=== PATIENT | female | born 1985 | race African-American/Black ===

== ENCOUNTER 2016-10-20 06:03 | Emergency (ER) | payer OTHER ==
[2016-10-20] MEDS ORDERED: MECLIZINE HCL 25 MG TABLET (FP) PO STA (06:22)
[2016-10-20 06:23] VITALS: TEMP 97.9; BMI 23.0
[2016-10-20] MEDS ORDERED: MECLIZINE HCL 25 MG TABLET (FP) ONE (06:26)
--- NOTE | 2016-10-20 06:39 | PDOC ---
History of Present Illness - General History Source: Patient Exam Limitations: No Limitations - History of Present Illness Initial Comments: 10/20/16 06:41 The patient is a 31 year old female with significant past medical history of hypertension, vertigo, anxiety who presents to the ED for dizziness prior to arrival. Patient reports waking up this morning and as she was reaching for her phone she suddenly felt the room spinning. States due to her anxiety, the dizziness became worse. Patient reports taking atenolol 25 mg for her blood pressure and when she takes it, the atenolol will usually slow her heart rate thus improving her anxiety and vertigo. However, after taking it today, it did not improve her symptoms. Patient also reports associated palpitations and nausea, but no vomiting. The patient denies fever, chills, cough, SOB, chest pain, abdominal pain, and diarrhea. Allergies: NKDA Social History: No alcohol, tobacco, or drug use reported. Past Surgical History: None reported PCP: Dr. Anders Rico <Sravanthi Escobar - Last Filed: 10/20/16 06:41> - General History Source: Patient <VinodGarfield gutierres - Last Filed: 10/20/16 19:17> - General Chief Complaint: Lightheaded Stated Complaint: DIZZINESS Time Seen by Provider: 10/20/16 06:09 Past History <Sravanthi Escobar - Last Filed: 10/20/16 06:41> - Past Medical History HTN: Yes - Psycho/Social/Smoking Cessation Hx Anxiety: Yes Suicidal Ideation: No Smoking History: Never smoked Have you smoked in the past 12 months: No Hx Alcohol Use: No Drug/Substance Use Hx: No <Garfield Perry - Last Filed: 10/20/16 19:17> - Past Medical History Allergies/Adverse Reactions: Allergies Allergy/AdvReac Type Severity Reaction Status Date / Time caffeine AdvReac Verified 10/20/16 06:10 Home Medications: Ambulatory Orders Atenolol [Tenormin -] 25 mg PO DAILY 12/11/13 Meclizine HCl [Antivert -] 25 mg PO TID #30 tablet 10/20/16 Review of Systems - Review of Systems Able to Perform ROS?: Yes Comments:: 10/20/16 06:41 CONSTITUTIONAL: Absent: fever, no chills, no fatigue EYES: Absent: visual changes ENT: Absent: ear pain, no sore throat CARDIOVASCULAR: +palpitations Absent: chest pain RESPIRATORY: Absent: cough, no SOB GI: +nausea Absent: abdominal pain, no vomiting, no constipation, no diarrhea GENITOURINARY: Absent: dysuria, no frequency, no hematuria MUSCULOSKELETAL: Absent: back pain, no arthralgia, no myalgia SKIN: Absent: rash NEURO: +dizziness Absent: headache <ShawnSravanthi - Last Filed: 10/20/16 06:41> *Physical Exam - Vital Signs Last Vital Signs Temp Pulse Resp BP Pulse Ox 97.9 F 126 H 18 150/93 100 10/20/16 06:11 10/20/16 06:11 10/20/16 06:11 10/20/16 06:11 10/20/16 06:11 - Physical Exam Comments: 10/20/16 06:41 GENERAL: Well-appearing, well-nourished. No apparent distress. HEENT: Normocephalic, atraumatic. PERRL, EOM intact. Occasional mild nystagmus to the right CARDIOVASCULAR: Tachycardia. Regular rhythm. Normal S1, S2. PULMONARY: Clear to auscultation bilaterally. ABDOMEN: Soft, non-distended, non-tender. EXTREMITIES: Normal ROM in all four extremities. No gross deformities. SKIN: Warm, dry. No rash NEUROLOGICAL: No focal neurological deficits. <ShawnSravanthi - Last Filed: 10/20/16 06:41> - Vital Signs Last Vital Signs Temp Pulse Resp BP Pulse Ox 97.9 F 126 H 18 150/93 100 10/20/16 06:11 10/20/16 06:11 10/20/16 06:11 10/20/16 06:11 10/20/16 06:11 <Garfield Perry - Last Filed: 10/20/16 19:17> ED Treatment Course - Medications Given in the ED: ED Medications Discontinued Medications Generic Name Dose Route Start Last Admin Trade Name Freq PRN Reason Stop Dose Admin Meclizine HCl 25 mg 10/20/16 06:22 10/20/16 06:24 Antivert - PO 10/20/16 06:23 25 mg ONCE STA Administration <ShawnSravanthi - Last Filed: 10/20/16 06:41> - Medications Given in the ED: ED Medications Discontinued Medications Generic Name Dose Route Start Last Admin Trade Name Kristine PRN Reason Stop Dose Admin Meclizine HCl 25 mg 10/20/16 06:22 10/20/16 06:24 Antivert - PO 10/20/16 06:23 25 mg ONCE STA Administration <Garfield Perry - Last Filed: 10/20/16 19:17> Medical Decision Making - Medical Decision Making 10/20/16 19:17 Dr. Perry: The scribe's documentation has been prepared under my direction and personally reviewed by me in its entirery. I confirm that the note above accurately reflects all work, treatment, procedures, and medical decision making performed by me. <Garfield Perry - Last Filed: 10/20/16 19:17> *DC/Admit/Observation/Transfer - Attestations Scribe Attestion: 10/20/16 06:41 Documentation prepared by Sravanthi Escobar, acting as medical underwriter for Garfield Perry MD/DO. <Sravanthi Escobar - Last Filed: 10/20/16 06:41> - Discharge Dispostion Admit: No <Garfield Perry - Last Filed: 10/20/16 19:17> Diagnosis at time of Disposition: Vertigo, peripheral - Discharge Dispostion Disposition: HOME Condition at time of disposition: Improved - Prescriptions Prescriptions: Meclizine HCl [Antivert -] 25 mg PO TID #30 tablet - Referrals Referrals: Edmundo Drew MD [Staff Physician] - Call tomorrow - Patient Instructions Printed Discharge Instructions: DI for Vertigo, DI for Benign Paroxysmal Positional Vertigo Additional Instructions: Return to the emergency department immediately with ANY new, persistent or worsening symptoms. You MUST call and follow up with your doctor tomorrow. Please make sure your doctor reviews the results of your emergency department evaluation. - Post Discharge Activity Work/School Note: Back to Work
--- NOTE | 2016-10-20 06:57 | PDOC ---
*Physical Exam - Vital Signs Last Vital Signs Temp Pulse Resp BP Pulse Ox 97.9 F 126 H 18 150/93 100 10/20/16 06:11 10/20/16 06:11 10/20/16 06:11 10/20/16 06:11 10/20/16 06:11 - Physical Exam Comments: 10/20/16 07:08 Sign-out received from outgoing Emergency Physician Pt interviewed and examined She has a history of vertigo and has similar complaints to her prior episodes Her dizziness is described as "the room spinning." It only occurs with head movement. It lasts seconds, and then resolves. She denies diplopia, dysphagia, ataxia She has no dysmetria She has no dysdiadochokinesis Her gait is not ataxic She has no sensory or motor complaints in the extremities, nor does she have any abnormal motor or sensory findings on physical examination Heart rate 80-90 on serial exam Merrick's Hallpike is positive She states that she feels "much better" and would like to go home Will administer single Valium tablet and discharged with oral meclizine and ENT follow-up Clinical impression: Benign paroxysmal peripheral vertigo I discussed the physical exam findings, ancillary test results and final diagnoses with the patient. I answered all of the patient's questions. The patient was satisfied with the care received and felt comfortable with the discharge plan and treatment plan. The patient will call their primary care physician within 24 hours to arrange follow-up and will return to the Emergency Department with any new, persistent or worsening symptoms. 10/20/16 07:12 10/20/16 07:13 ED Treatment Course - Medications Given in the ED: ED Medications Discontinued Medications Generic Name Dose Route Start Last Admin Trade Name Kristine PRN Reason Stop Dose Admin Meclizine HCl 25 mg 10/20/16 06:22 10/20/16 06:24 Antivert - PO 10/20/16 06:23 25 mg ONCE STA Administration *DC/Admit/Observation/Transfer Diagnosis at time of Disposition: Vertigo, peripheral - Discharge Dispostion Disposition: HOME Condition at time of disposition: Improved - Prescriptions Prescriptions: Meclizine HCl [Antivert -] 25 mg PO TID #30 tablet - Referrals Referrals: Edmundo Drew MD [Staff Physician] - Call tomorrow - Patient Instructions Printed Discharge Instructions: DI for Vertigo, DI for Benign Paroxysmal Positional Vertigo Additional Instructions: Return to the emergency department immediately with ANY new, persistent or worsening symptoms. You MUST call and follow up with your doctor tomorrow. Please make sure your doctor reviews the results of your emergency department evaluation. - Post Discharge Activity Work/School Note: Back to Work
[2016-10-20] MEDS ORDERED: diazePAM 5 MG TABLET PO ONE (07:02)
[2016-10-20] MEDS ORDERED: diazePAM 2 MG TABLET ONE (07:06)
[2016-10-20 07:35] VITALS: BP 138/99; PULSE 76
== END 2016-10-20 07:37 | disposition home or self-care (01) ==
LOC: JER 06:03
DX: H81.10 Benign paroxysmal vertigo, unspecified ear (principal); I10 Essential (primary) hypertension; F41.9 Anxiety disorder, unspecified
CPT/HCPCS: 99281-25

== ENCOUNTER 2017-05-21 16:01 | Emergency (ER) | payer OTHER ==
[2017-05-21 17:01] VITALS: BMI 23.8
--- NOTE | 2017-05-21 17:22 | PDOC ---
History of Present Illness - General Chief Complaint: Tachycardia Stated Complaint: TACHYCARDIA Time Seen by Provider: 05/21/17 16:50 - History of Present Illness Initial Comments: Ms Bush is a 31yo F with a PMHx of Panic disorder and HTN who presents with an episode of irregularly irregular tachycardia this afternoon. Prior, she drank a glass of alcohol and was straining to have BM. She subsequently had a panic attack which worsened her palpitations, and called EMS, but before they arrived her rhythm converted to regular. She denies SOB, fevers, chills, syncope. Has freq tachycardia 2/2 panic attacks. Recently prescribed metoprolol , but she is scared to take it and is thus noncompliant. Currently she feels like she has remnants of the panic attack, so she feels her heart is fast, but is regular. Past History - Past Medical History Allergies/Adverse Reactions: Allergies Allergy/AdvReac Type Severity Reaction Status Date / Time caffeine AdvReac Verified 10/20/16 06:10 Home Medications: Ambulatory Orders Metoprolol Tartrate 25 mg PO DAILY 05/21/17 COPD: No HTN: Yes - Suicide/Smoking/Psychosocial Hx Smoking History: Never smoked Have you smoked in the past 12 months: No Information on smoking cessation initiated: No Hx Alcohol Use: No Drug/Substance Use Hx: No Substance Use Type: None *Physical Exam - Vital Signs Last Vital Signs Temp Pulse Resp BP Pulse Ox 119 H 18 151/101 100 05/21/17 16:50 05/21/17 16:50 05/21/17 16:50 05/21/17 16:50 - Physical Exam Comments: GEN: AAOx3, NAD, Lying comfortably HEENT: PERRLA, EOMi CV: S1, S2, tachycardic rate, regular rhythm LUNG: CTABL ABD: Soft, NT, ND, normoactive BS MSK: No edema, no erythema NEURO: CN 2-12 intact Medical Decision Making - Medical Decision Making 31yo F w/ anxiety disorder who had episode of irregular tachycardia after drinking alcohol + valsalva. Now regular. EKG shows sinus tach w/ some anterior TWI present before. It's possible patient had bout of Afib that converted. HEr current sinus tachycardia is likely from panic attack. Elevated BP likely from medication noncompliance. Will get urine . Planned on CBC, CMP, TSH but pt denied bloodwork. Asked pt to take a dose of Metoprolol (bottle is with her), and recheck vitals. Case discussed w/ Dr Garcia 05/21/17 18:44 On re-check, after taking Metoprolol, HR down to 89. BP down to 149/95. Compliance encouraged. *DC/Admit/Observation/Transfer Diagnosis at time of Disposition: Anxiety, Tachycardia - Discharge Dispostion Disposition: HOME Condition at time of disposition: Improved Admit: No - Referrals Referrals: Anders Rico MD [Primary Care Provider] - 1 week - Patient Instructions Printed Discharge Instructions: DI for Panic Disorder - Post Discharge Activity
--- NOTE | 2017-05-21 17:40 | PDOC ---
Attending Attestation - Resident Resident Name: SobeidaqueenieClay - ED Attending Attestation I have performed the following: I have examined & evaluated the patient, The case was reviewed & discussed with the resident, I agree w/resident's findings & plan, Exceptions are as noted - HPI HPI: 05/21/17 17:36 31 yo female p/w tachycardia after drinking alcohol . She has h/o panic attacks and has a history of tachycardia and HTN She was prescribed metoprolol by Dr Rico in November but is fearful of taking it and so is noncompliant - Physicial Exam PE: 05/21/17 17:40 slender 31 yo female seated on gurney on no acute distress head ncat eyes eomi amparo neck supple cvs [id number] lungs cta b/l abd soft.nontender ext no pittng edema extremities no deformities,no edema neuro axox3 ,ambulatory skin warm and dry - Medical Decision Making 05/21/17 17:42 plan repeat VS, labs,pt states she might be ,reassess 05/21/17 18:07 pt has NEGATIVE test. discussed w her the importance of taking her metoprolol 05/21/17 18:34 compared ekg to priors and there are no new changes ECHO done 2014 with normal LV function, no wall motion abnormalities -pt refusing all blood work. She states her PCP Dr Rico recently did her labs work 05/21/17 18:48 repeat pulse=89. pt denies any sob,chest pain plan follow up with Dr Rico
[2017-05-21 17:48] VITALS: TEMP 98.5
[2017-05-21 18:52] VITALS: BP 149/95; PULSE 89
--- NOTE | 2017-05-24 12:15 | EKG ---
Test Reason : Blood Pressure : / mmHG Vent. Rate : 111 BPM Atrial Rate : 111 BPM P-R Int : 170 ms QRS Dur : 092 ms QT Int : 320 ms P-R-T Axes : 074 069 005 degrees QTc Int : 435 ms SINUS TACHYCARDIA POSSIBLE LEFT ATRIAL ENLARGEMENT T WAVE ABNORMALITY, CONSIDER INFERIOR ISCHEMIA T WAVE ABNORMALITY, CONSIDER ANTERIOR ISCHEMIA ABNORMAL ECG WHEN COMPARED WITH ECG OF 22-APR-2015 09:08, INVERTED T WAVES HAVE REPLACED NONSPECIFIC T WAVE ABNORMALITY IN ANTERIOR LEADS Confirmed by ELLIOTT CONDE, MAGDA ([id number]) on 05/24/2017 12:14:55 PM Referred By: Confirmed By:MAGDA GALLAGHER MD
== END 2017-05-21 18:52 | disposition home or self-care (01) ==
LOC: JER 16:01
DX: F10.980 Alcohol use, unspecified with alcohol-induced anxiety disorder (principal); F41.0 Panic disorder [episodic paroxysmal anxiety]; I10 Essential (primary) hypertension; Y90.9 Presence of alcohol in blood, level not specified
CPT/HCPCS: 84703; 93005; 93010; 99283-25

== ENCOUNTER 2019-05-02 18:20 | Emergency (ER) | payer OTHER ==
[2019-05-02 18:27] VITALS: BMI 24.5
--- NOTE | 2019-05-02 18:58 | PDOC ---
History of Present Illness - General Chief Complaint: Pain Stated Complaint: FEELING PAIN Time Seen by Provider: 05/02/19 18:54 History Source: Patient Exam Limitations: No Limitations - History of Present Illness Initial Comments: 05/02/19 18:57 HPI: 33yo F with a PMHx of panic disorder and HTN presenting lower abdominal pain s/p positive urine test on 04/29. Patient endorses lower abdominal pain radiating down onto her bilateral thighs. Endorses mild nausea, no vomiting. Denies dysuria but endorses increased urinary frequency, no incontinence. Denies CP, SOB, fevers, chills, diarrhea, recent illness, vaginal bleeding or discharge. Went to [facility] on 04/29 and TVUS without sign of fetus. On 04/30 her pressure pains began and have been constant ever since. [employer]: Fibroids, no polyps, cysts, abnormal PAP smears LMP 03/29 (gestation age ~4wks) All: Caffeine? Meds: Metoprolol PMH: Htn, panic disorder, fibroids PSH: Denies SHx: Denies etoh, cigarettes, illicits Past History - Past Medical History Allergies/Adverse Reactions: Allergies Allergy/AdvReac Type Severity Reaction Status Date / Time caffeine AdvReac Verified 05/02/19 18:26 Home Medications: Ambulatory Orders Metoprolol Tartrate 25 mg PO DAILY 05/21/17 COPD: No HTN: Yes - Psycho Social/Smoking Cessation Hx Smoking History: Never smoked Have you smoked in the past 12 months: No Hx Alcohol Use: No Drug/Substance Use Hx: No Substance Use Type: None Review of Systems - Review of Systems Able to Perform ROS?: Yes Is the patient limited Armenian proficient: Yes Constitutional: No: Chills, Fever, Weakness HEENTM: No: Recent change in vision, Nose Congestion, Throat Pain Respiratory: No: Cough, Shortness of Breath, Wheezing Cardiac (ROS): No: Chest Pain, Edema, Irregular Heart Rate, Chest Tightness ABD/GI: Yes: Nausea. No: Constipated, Diarrhea, Poor Appetite, Poor Fluid Intake, Vomiting : No: Burning, Dysuria, Discharge, Frequency Musculoskeletal: No: Muscle Pain, Muscle Weakness, Neck Pain Integumentary: No: Bruising, Erythema, Lesions, Lumps, Rash Neurological: No: Headache, Numbness, Tingling, Weakness Psychiatric: No: Sleep Pattern Change, Change in Appetite Endocrine: Yes: Increased Urine. No: Increased Thirst, Change in Weight Hematologic/Lymphatic: No: Anemia, Blood Clots, Easy Bleeding All Other Systems: Reviewed and Negative *Physical Exam - Vital Signs Last Vital Signs Temp Pulse Resp BP Pulse Ox 98 F 99 H 18 142/74 100 05/02/19 18:24 05/02/19 18:24 05/02/19 18:24 05/02/19 18:24 05/02/19 18:24 - Physical Exam 05/02/19 19:24 Vitals reviewed, AFVSS WDWN woman, appears stated age, no acute distress MMM, EOMI, NCAT Tachycardia to 100s, NSR, nl s1s2, no murmur appreciated CTABL, normal WOB, no wheezes / rales / rhonchi Soft, tender to palpation across lower abdomen, palpable fibroids WWP, 2+ radial and PT pulses CN grossly intact, normal gait, normal sensation 05/02/19 20:20 SSE: Normal external genitalia, normal rugae, thin white physiologic discharge, normal cervix without erythema or gross lesions BME: Non-tender, no CMT, fibroid masses appreciated anteriorly ED Treatment Course - LABORATORY CBC & Chemistry Diagram: 05/02/19 20:45 05/02/19 20:45 Medical Decision Making - Medical Decision Making 05/02/19 19:27 33yo F with a PMHx of panic disorder and HTN presenting lower abdominal discomfort s/p positive urine test on 04/29. History notable for early by urine HCG, lower abdominal discomfort with associated nausea for several days without bleeding/discharge. Exam notable for lower abdominal discomfort, stable vitals with intermittently tachycardic HR (100s). DDX: related discomfort vs Fibroid pain vs UTI. - UA, UPreg - CBC, CMP, BetaHCG - 1L IVF 05/02/19 20:20 - SSE/BME Unremarkable 05/02/19 22:44 - TVUS with fibroids, ?early Discharge - Discharge Information Problems reviewed: Yes Clinical Impression/Diagnosis: Qualifiers: Weeks of gestation: less than 8 weeks Qualified Code(s): Z3A.01 - Less than 8 weeks gestation of Condition: Stable Disposition: HOME - Admission No - Follow up/Referral Referrals: Anders Rico MD [Primary Care Provider] - Daiana Tellez MD [Staff Physician] - Lazara Quintanilla MD [Staff Physician] - Bernard Slater MD [Staff Physician] - - Patient Discharge Instructions Additional Instructions: You were seen and evaluated for abdominal pain. This pain is likely related to your fibroids and/or . You can take tylenol as needed for this pain as directed on the package label. Follow up with your [facility] in 2 days for a repeat Beta HCG. We have provided you with several OBGYN doctors in this packet, please pick one and call their office tomorrow more to establish care. Return to the ED for any new or concerning symptoms including but not limited to: worsening pain, development of fevers / chills, or nausea and vomiting that prevent you from taking food or medicine PO. - Post Discharge Activity
[2019-05-02] MEDS ORDERED: SODIUM CHLORIDE 0.9% 500 ML INFUS.BAG IV ONE (19:30)
[2019-05-02 19:50] LABS: PH,URINE 5.5 (5.0-8.0); URINE APPEARANCE CLEAR; URINE BILIRUBIN NEGATIVE (NEGATIVE); URINE COLOR YELLOW; URINE GLUCOSE (UA) NEGATIVE (NEGATIVE); URINE KETONE NEGATIVE (NEGATIVE); URINE LEUK ESTERASE NEGATIVE (NEGATIVE); URINE NITRITE NEGATIVE (NEGATIVE); URINE PROTEIN NEGATIVE (NEGATIVE); URINE UROBILINOGEN 0.2 mg/dL (0.2-1.0)
--- NOTE | 2019-05-02 20:35 | PDOC ---
Documentation entered by Diane Murillo SCRIBE, acting as scribe for Sarah Rand DO. Sarah Rand, DO: This documentation has been prepared by the Chidi ruiz Joy, SCRIBE, under my direction and personally reviewed by me in its entirety. I confirm that the documentation accurately reflects all work, treatment, procedures, and medical decision making performed by me. Attending Attestation - Resident Resident Name: Suman Hearn - ED Attending Attestation I have performed the following: I have examined & evaluated the patient, The case was reviewed & discussed with the resident, I agree w/resident's findings & plan, Exceptions are as noted - HPI HPI: 05/02/19 19:44 The patient is a 33 year old female (positive test 04/29, ~4 weeks) with significant past medical history of HTN, panic disorder, and fibroids who presents to the ED with nausea and abdominal pain for 4 days. As per patient, she has had constant abdominal pain that onset on 04/30/19 and adds that the pain radiates bilaterally downward toward her legs. Patient endorses that she has seen her SERVICE [employer]MENT MECHANIC on 04/29/19 who told her that there was no sign of a fetus. Patient adds that her last menstrual period was on 03/29/2019 Allergies: Caffeine PCP: Dr. Anders Rico - Physicial Exam PE: 05/02/19 20:32 Gen: aaox3, nad heart: +s1s2 reg lungs: cta b/l abd: soft, pelvic mass palpated (hx of fibroids), ttp suprapubic exT: no c/c/e - Medical Decision Making 05/02/19 20:32 a/p: 33yo with a hx of fibroids with pelvic pressure and pain -states since becoming preg - preg test at home 04/28 -saw her SERVICE [employer] EQUIPMENT MECHANIC 04/29 who could not see the preg on ultrasound -pt states pelvic cramping, pain, pressure since becoming preg -FDLMP was 03/29 -will send labs, ua, ucg, beta hcg, tvus -denies bleeding -will monitor and reassess 05/02/19 22:44 early gestational sac vs pseudogestational sac beta 1800 pt will need repeat beta in 2 days pt with fibroid uterus will need lawn care specialist follow up 05/02/19 22:45 pt stable for dc to home
[2019-05-02 21:42] LABS: BASO % 0.4 % (0-2.0); EOS % 1.3 % (0-4.5); HEMATOCRIT 36.1 % (32.4-45.2); LYMPH % 26.2 % (8-40); MCH 31.2 pg (25.7-33.7); MCHC 33.2 g/dl (32.0-36.0); MEAN CELL VOLUME 93.8 fl (80-96); MEAN PLT VOLUME 10.7 fl (7.5-11.1); MONO % 7.2 % (3.8-10.2); NEUT % 64.9 % (42.8-82.8); PLATELET COUNT 174 K/MM3 (134-434); RBC 3.85 M/mm3 (3.60-5.2); RDW 13.1 % (11.6-15.6); WHITE BLOOD COUNT 7.5 K/mm3 (4.0-10.0)
[2019-05-02 22:09] LABS: ALBUMIN 4.2 g/dl (3.4-5.0); BILIRUBIN,TOTAL 0.3 mg/dL (0.2-1); CALCIUM 9.1 mg/dL (8.5-10.1); CREATININE 0.7 mg/dL (0.55-1.3)
[2019-05-02 22:33] VITALS: BP 136/70; PULSE 82; TEMP 97.9
[2019-05-02] MEDS ORDERED: ACETAMINOPHEN 500 MG TABLET (FP) PO ONE (22:45)
== END 2019-05-02 22:59 | disposition home or self-care (01) ==
LOC: JER 18:20
DX: O26.891 Other specified pregnancy related conditions, first trimester (principal); O34.11 Maternal care for benign tumor of corpus uteri, first trimester; D25.9 Leiomyoma of uterus, unspecified; Z3A.01 Less than 8 weeks gestation of pregnancy; Z88.8 Allergy status to other drugs, medicaments and biological substances
CPT/HCPCS: 36415; 76817-TC; 80053; 81003; 84702; 84703; 85025; 86850; 86900; 86901; 99283-25

== ENCOUNTER 2019-06-25 11:39 | Inpatient (IN) | payer OTHER ==
--- NOTE | 2019-06-25 12:35 | PDOC ---
History of Present Illness - General Chief Complaint: Pain Stated Complaint: LT LEG PAIN/SWELLING, 12wks , DVT Time Seen by Provider: 06/25/19 12:20 History Source: Patient Exam Limitations: No Limitations - History of Present Illness Initial Comments: 06/25/19 12:34 HPI 33-year-old female with history of anxiety, hypertension, uterine fibroids presenting with LLE pain and swelling x 3 days, associated with groin and thigh pain. Last preg test was positive on 04/29/19. +SOB with mild exertion for "a while", which she attributed to her . 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 No tobacco, ETOH or drug use. Meds: metoprolol, prenatals Family history: stroke in mother; no PE/DVT. PMD: Dr Rico CHIEF OPERATOR HYDROFORMER: Dr Leonard Review of systems Constitutional: no fevers or chills. No weakness HEENT: no headache or dizziness. No congestion. No visual/hearing disturbances. CVS: no cp or syncope. Resp: No cough. +shortness of breath. Gastrointestinal: no abdominal pain, nausea, vomiting, diarrhea. Genitourinary: no urinary sx, hematuria. MUSCULOSKELETAL: No joint pain and swelling. No neck or back pain. +leg pain and swelling. SKIN: no redness or skin changes, no discharge, no rash. No wounds. Hematologic: no easy bruising/bleeding. no history of clots/PE/DVT. NEUROLOGIC: No headache, dizziness, LOC or altered mental status. No weakness, numbness or tingling. Psych: no anxiety or depression Allergic/Immunologic: no allergies All other systems reviewed and negative, or as documented in HPI. Physical exam General: Well appearing, awake and alert, NAD. HEENT: NCAT, PERRL, EOMI, clear conjunctiva, anicteric, moist mucus membranes, clear oropharynx, no oral lesions.. Neck: neck supple, FROM Resp: CTAB, normal and even respirations, no respiratory distress CVS: RRR, no murmurs, 2+ peripheral pulses throughout, no peripheral edema Abdomen: soft, +firm mass in suprapubic region, c/w fibroid, nontender. : deferred, no VB. Back: nontender, normal inspection and ROM MSK: +left lower extremity edema, CAUSEY x4, ROM intact. No clubbing or cyanosis. normal bulk and tone. Extremities: +LLE edema >right, +diffusely tender in the distribution of the deep venous system, +calf tenderness. Neuro: alert, oriented appropriately; no focal neurologic deficits Psych: Calm and cooperative Skin: warm and well perfused, cap refill <2 sec, normal color, no rash or skin discoloration. 06/25/19 12:35 06/25/19 13:42 06/25/19 14:11 06/25/19 14:14 Past History - Past Medical History Allergies/Adverse Reactions: Allergies Allergy/AdvReac Type Severity Reaction Status Date / Time caffeine AdvReac Verified 06/25/19 11:47 COPD: No HTN: Yes - Psycho Social/Smoking Cessation Hx Smoking History: Never smoked Have you smoked in the past 12 months: No Information on smoking cessation initiated: No Hx Alcohol Use: No Drug/Substance Use Hx: No Substance Use Type: None *Physical Exam - Vital Signs Last Vital Signs Temp Pulse Resp BP Pulse Ox 98.5 F 94 H 19 155/91 99 06/25/19 11:45 06/25/19 11:45 06/25/19 11:45 06/25/19 11:45 06/25/19 11:45 Heart Score/ECG Review #1 ECG reviewed & interpreted by me at: 13:45 General ECG Interpretation: Sinus Rhythm, Normal Rate, Normal Intervals 06/25/19 13:58 EKG normal sinus rhythm 95 bpm, no interval abnormalities, narrow QRS, ST and T wave segments and morphology normal. Nonspecific T wave abnormalities with T wave inversions from V1 to V4 and lead III ED Treatment Course - LABORATORY CBC & Chemistry Diagram: 06/25/19 13:09 06/25/19 13:09 Medical Decision Making - Medical Decision Making 06/25/19 13:46 Vital Signs Temp Pulse Resp BP Pulse Ox 98.5 F 94 H 19 155/91 99 06/25/19 11:45 06/25/19 11:45 06/25/19 11:45 06/25/19 11:45 06/25/19 11:45 Patient presenting with LLE pain and swelling x3 days, hemodynamically stable. Bedside POCUS/Ultrasound reveals left proximal DVT extending from the common femoral down to the femoral vein. will perform repeat duplex here TAB ultrasound done with live IUP at 12 weeks as well as heart rate of about 156 bpm. No pelvic free fluid is noted. Patient initiated Lovenox 1 mg/kg x1 dose now. 60mg x1 dose now basic labs and lytes wnl, including Cr and LFTs. Consultation with vascular on-call, Dr. Melara agree with plan. Awaiting callback from Dr. Leonard. 06/25/19 14:12 spoke with NIRALI Sutton, admitting to Dr Benitez DVT, extensive and proximal, AC and further intervention pending vascular cs. Discharge - Discharge Information Problems reviewed: Yes Clinical Impression/Diagnosis: DVT (deep vein thrombosis) in Femoral DVT (deep venous thrombosis) Qualifiers: Chronicity: acute Laterality: left Qualified Code(s): I82.412 - Acute embolism and thrombosis of left femoral vein Condition: Fair - Admission Yes - Follow up/Referral Referrals: Anders Rico MD [Primary Care Provider] - - Patient Discharge Instructions - Post Discharge Activity
[2019-06-25 13:41] LABS: BASO % 0.4 % (0-2.0); EOS % 0.7 % (0-4.5); HEMATOCRIT 32.7 % (32.4-45.2); LYMPH % 16.6 % (8-40); MCH 31.7 pg (25.7-33.7); MCHC 33.7 g/dl (32.0-36.0); MEAN CELL VOLUME 94.1 fl (80-96); MONO % 5.9 % (3.8-10.2); NEUT % 76.4 % (42.8-82.8); PLATELET COUNT 177 K/MM3 (134-434); RBC 3.47 M/mm3 (3.60-5.2); RDW 13.9 % (11.6-15.6); WHITE BLOOD COUNT 7.7 K/mm3 (4.0-10.0)
[2019-06-25] MEDS ORDERED: ENOXAPARIN NA (PORCINE) 60 MG/0.6 ML DISP.SYRIN SQ SCH (13:45)
[2019-06-25 13:50] LABS: INR 0.99 (0.83-1.09); PROTHROMBIN TIME (PATIENT) 11.7 SEC (9.7-13.0)
[2019-06-25 13:52] LABS: ACTIVATED PTT 29.4 SECONDS (25.2-36.5)
[2019-06-25 14:03] LABS: BILIRUBIN,TOTAL 0.5 mg/dL (0.2-1); BLOOD UREA NITROGEN 8.7 mg/dL (7-18); CALCIUM 9.5 mg/dL (8.5-10.1); CREATININE 0.6 mg/dL (0.55-1.3); POTASSIUM 4.4 mmol/L (3.5-5.1); TOT PROT 7.9 g/dl (6.4-8.2)
[2019-06-25] MEDS ORDERED: ENOXAPARIN NA (PORCINE) 60 MG/0.6 ML DISP.SYRIN SQ ONE (14:33)
[2019-06-25] MEDS ORDERED: ACETAMINOPHEN 325 MG TABLET (FP) PO ONE (15:16)
--- NOTE | 2019-06-25 15:57 | CONSULT ---
<KristenKristyn - Last Filed: 06/25/19 16:25> - Consultation REQUESTING PROVIDER: CONSULT REQUEST: We have been asked to surgically evaluate this patient for left leg clot. PCP:Jennifer Benitez HISTORY OF PRESENT ILLNESS: 33 yo female who presented to the ER after being seen by Dr. Leonard, her GERIATRIC PHYSICIAN physician. She had complaints of leg swelling/pain since Monday. At her [facility] appointment today, they completed a sonogram which revealed a clot in her CFV/femoral vein. The patient has a copy of her report. She was treated with a dose of lovenox today while in the ER and is being admitted. She denies any history of clotting/bleeding disorder for herself or family. The patient has been less mobile, she has known fibroids/anemia and feels tired. She denies any history of smoking. The patient has had SOB with her but no increase from her baseline during . PMHx: HTN, anxiety, heart murmur PSHx: Allergies Allergy/AdvReac Type Severity Reaction Status Date / Time caffeine AdvReac Verified 06/25/19 11:47 REVIEW OF SYSTEMS: CARDIOVASCULAR: Absent: chest pain, palpitations, heart murmur RESPIRATORY: Absent: cough, shortness of breath GASTROINTESTINAL: Absent: abdominal pain, abdominal distension, nausea, vomiting, diarrhea, constipation, melena, hematochezia HEMATOLOGIC/IMMUNOLOGIC: Absent: easy bleeding, easy bruising, lymphadenopathy PHYSICAL EXAM: GENERAL: Awake, alert, and fully oriented, in no acute distress. LUNGS: Clear to auscultation bilat anteriorly. No wheezes, and no crackles. HEART: Regular rate and rhythm. LOWER EXTREMITIES: +2DP/femoral pulse b/l. warm, well-perfused. Left leg with swelling to the upper thigh. Minimal swelling to calf/ankle of the left leg. NEUROLOGICAL: Normal speech, gait not observed. PSYCH: Cooperative. Good eye contact. Appropriate mood and affect. Vital Signs Temperature 98.5 F 06/25/19 11:45 Pulse Rate 94 H 06/25/19 11:45 Respiratory Rate 19 06/25/19 11:45 Blood Pressure 155/91 06/25/19 11:45 O2 Sat by Pulse Oximetry (%) 99 06/25/19 11:45 Lab Results WBC 7.7 K/mm3 (4.0-10.0) 06/25/19 13:09 RBC 3.47 M/mm3 (3.60-5.2) L 06/25/19 13:09 Hgb 11.0 GM/dL (10.7-15.3) 06/25/19 13:09 Hct 32.7 % (32.4-45.2) 06/25/19 13:09 MCV 94.1 fl (80-96) 06/25/19 13:09 MCHC 33.7 g/dl (32.0-36.0) 06/25/19 13:09 RDW 13.9 % (11.6-15.6) 06/25/19 13:09 Plt Count 177 K/MM3 (134-434) 06/25/19 13:09 Sodium 134 mmol/L (136-145) L 06/25/19 13:09 Potassium 4.4 mmol/L (3.5-5.1) 06/25/19 13:09 Chloride 103 mmol/L (98-107) 06/25/19 13:09 Carbon Dioxide 22 mmol/L (21-32) 06/25/19 13:09 Anion Gap 10 MMOL/L (8-16) 06/25/19 13:09 BUN 8.7 mg/dL (7-18) 06/25/19 13:09 Creatinine 0.6 mg/dL (0.55-1.3) 06/25/19 13:09 Random Glucose 70 mg/dL (74-106) L 06/25/19 13:09 Calcium 9.5 mg/dL (8.5-10.1) 06/25/19 13:09 Blood Type AB POSITIVE 06/25/19 13:09 Antibody Screen Negative 06/25/19 13:09 INR 0.99 (0.83-1.09) 06/25/19 13:09 Duplex scan(outside report completed today) left CFV/Femoral vein DVT Repeat sono: Left CFV, greater saphrenous, deep femoral and proximal femoral nikia with no flow and noncompression. Adequate compression of the mid to distal femoral vein/popliteal. Bedside sono while in the ER, competed by the ER staff revealed IUP. A/P: 33 yo female with 12 week IUP, uterine fibroids and left leg DVT Pt treated with lovenox SQ today in the ER for acute finding of DVT No immediate vascular intervention planned at this time, case . with Dr. Melara and will continue to follow the patient. Her leg remains slightly swollen in comparison to her right extremity in the upper thigh. Elevated left leg while in bed. She is to have a MRI for her history of fibroids as per her GERIATRIC PHYSICIAN attending. Consult placed for hematology and her GERIATRIC PHYSICIAN physician. <Ko Melara - Last Filed: 06/26/19 09:54> - Consultation REQUESTING PROVIDER: CONSULT REQUEST: We have been asked to surgically evaluate this patient for ( specify). PCP:Jennifer Benitez HISTORY OF PRESENT ILLNESS: PMHx: PSHx: Home Medications Medication Instructions Recorded 114/Iron A-G/Folate 1 06/25/19 Allergies Allergy/AdvReac Type Severity Reaction Status Date / Time caffeine AdvReac Verified 06/25/19 11:47 REVIEW OF SYSTEMS: CONSTITUTIONAL: Absent: fever, chills, diaphoresis, generalized weakness, malaise, loss of appetite, weight change CARDIOVASCULAR: Absent: chest pain, syncope, palpitations, irregular heart rate, lightheadedness , peripheral edema RESPIRATORY: Absent: cough, shortness of breath, dyspnea with exertion, wheezing, stridor, hemoptysis GASTROINTESTINAL: Absent: abdominal pain, abdominal distension, nausea, vomiting, diarrhea, constipation, melena, hematochezia GENITOURINARY: Absent: dysuria, frequency, urgency, hesitancy, hematuria, flank pain, genital pain MUSCULOSKELETAL: Absent: myalgia, arthralgia, joint swelling, back pain, neck pain SKIN: Absent: rash, itching, pallor HEMATOLOGIC/IMMUNOLOGIC: Absent: easy bleeding, easy bruising, lymphadenopathy NEUROLOGIC: Absent: headache, focal weakness, paresthesias, dizziness, unsteady gait, seizure, mental status changes, bladder or bowel incontinence PSYCHIATRIC: Absent: anxiety, depression, suicidal or homicidal ideation, hallucinations. PHYSICAL EXAM: GENERAL: Awake, alert, and fully oriented, in no acute distress. HEAD: Normal with no signs of trauma. EYES: PERRL, sclera anicteric, conjunctiva clear. NECK: Normal ROM, supple without lymphadenopathy, JVD, or masses. LUNGS: Clear to auscultation bilat anteriorly. No wheezes, and no crackles. No accessory muscle use. HEART: Regular rate and rhythm. No murmurs ABDOMEN: Soft, nontender, not distended, normoactive bowel sounds, no guarding, no rebound, no masses. No organomegaly. MUSCULOSKELETAL: Normal ROM at all joints. No bony deformities or tenderness. No CVA tenderness. UPPER EXTREMITIES: 2+ pulses, warm, well-perfused. No cyanosis. Cap refill <2 seconds. No peripheral edema. LOWER EXTREMITIES: 2+ pulses, warm, well-perfused. No calf tenderness. No peripheral edema. NEUROLOGICAL: Normal speech, gait not observed. PSYCH: Cooperative. Good eye contact. Appropriate mood and affect. SKIN: Warm, dry, normal turgor, no rashes or lesions noted. Vital Signs Temperature 98.8 F 06/25/19 18:10 Pulse Rate 88 06/25/19 18:10 Respiratory Rate 18 06/25/19 18:10 Blood Pressure 139/87 06/25/19 18:10 O2 Sat by Pulse Oximetry (%) 99 06/25/19 18:35 Lab Results WBC 7.7 K/mm3 (4.0-10.0) 06/25/19 13:09 RBC 3.47 M/mm3 (3.60-5.2) L 06/25/19 13:09 Hgb 11.0 GM/dL (10.7-15.3) 06/25/19 13:09 Hct 32.7 % (32.4-45.2) 06/25/19 13:09 MCV 94.1 fl (80-96) 06/25/19 13:09 MCHC 33.7 g/dl (32.0-36.0) 06/25/19 13:09 RDW 13.9 % (11.6-15.6) 06/25/19 13:09 Plt Count 177 K/MM3 (134-434) 06/25/19 13:09 Sodium 134 mmol/L (136-145) L 06/25/19 13:09 Potassium 4.4 mmol/L (3.5-5.1) 06/25/19 13:09 Chloride 103 mmol/L (98-107) 06/25/19 13:09 Carbon Dioxide 22 mmol/L (21-32) 06/25/19 13:09 Anion Gap 10 MMOL/L (8-16) 06/25/19 13:09 BUN 8.7 mg/dL (7-18) 06/25/19 13:09 Creatinine 0.6 mg/dL (0.55-1.3) 06/25/19 13:09 Random Glucose 70 mg/dL (74-106) L 06/25/19 13:09 Calcium 9.5 mg/dL (8.5-10.1) 06/25/19 13:09 Blood Type AB POSITIVE 06/25/19 13:09 Antibody Screen Negative 06/25/19 13:09 INR 0.99 (0.83-1.09) 06/25/19 13:09 History reviewed and patient examined. 33 yo woman, with large uterine fibroid which has caused bleeding several weeks ago. Now admitted with left leg edema and DVT of left common femoral, deep femoral and femoral vein identified. Iliac vein not imaged but may also be involved. Use of Lovenox for duration of is indicated. IVC filter not indicated unless there is a problem with recurrent bleeding or new thrombus formation while anticoagulated. Procedures to remove the thrombus would require x-ray imaging and so cannot be done at this time. Management of edema with leg elevation and compression hose will have to suffice until after delivery.
[2019-06-25] MEDS ORDERED: SODIUM CHLORIDE NASAL SPRAY 44 ML BOTTLE NS PRN (16:53)
--- NOTE | 2019-06-25 16:59 | HP ---
Admitting History and Physical - Primary Care Physician PCP: Anders Rico S - Admission Chief Complaint: left leg swelling History of Present Illness: 33 year old female with PMH HTN, anxiety, uterine fibroids presents to the ED with LLE swelling. 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 Around week 8 of her she was put on bedrest by her OBGYN for bleeding with the fibroids. she felt better, went back to work for 3 days, then has been on winter break. she has been pretty immobile with her , and the fibroids are very uncomfortable for her. she denies any recent travel, and is obviously not on control. she denies family history of clotting disorders and never been told of one in the past. She takes metropolol for HTN, but during her her BP has been low. she checks it throughout the day, most recently 90/50 at home. so she has not been taking metropolol. Other than that, she does saline nasal spray for chronic cough and congestion throughout her . she denies chest pains, pressure, n/v/d. she states she has had nausea thoughout the . she reports +pain to LLE extending the whole lower extremity. History Source: Patient Limitations to Obtaining History: No Limitations - Past Medical History Cardiovascular: Yes: HTN ...LMP: 03/29/19 ...: Yes ...: 1 ...Para: 0 Psych: Yes: Anxiety - Past Surgical History Past Surgical History: Yes: None - Smoking History Smoking history: Never smoked Have you smoked in the past 12 months: No - Alcohol/Substance Use Hx Alcohol Use: No Home Medications - Allergies Allergies/Adverse Reactions: Allergies Allergy/AdvReac Type Severity Reaction Status Date / Time caffeine AdvReac Verified 06/25/19 11:47 Review of Systems - Review of Systems Constitutional: reports: No Symptoms Eyes: reports: No Symptoms HENT: reports: No Symptoms Neck: reports: No Symptoms Cardiovascular: reports: No Symptoms Respiratory: reports: No Symptoms Gastrointestinal: reports: Constipation Genitourinary: reports: No Symptoms Breasts: reports: No Symptoms Reported Musculoskeletal: reports: Extremity Pain Integumentary: reports: No Symptoms Neurological: reports: No Symptoms Endocrine: reports: No Symptoms Hematology/Lymphatic: reports: No Symptoms Psychiatric: reports: No Symptoms Physical Examination Vital Signs: Vital Signs Temperature 98.5 F 06/25/19 11:45 Pulse Rate 94 H 06/25/19 11:45 Respiratory Rate 19 06/25/19 11:45 Blood Pressure 155/91 06/25/19 11:45 O2 Sat by Pulse Oximetry (%) 99 06/25/19 11:45 Constitutional: Yes: Well Nourished HENT: Yes: Atraumatic, Normocephalic Neck: Yes: Supple Cardiovascular: Yes: Regular Rate and Rhythm Respiratory: Yes: Regular, CTA Bilaterally Gastrointestinal: Yes: Normal Bowel Sounds Musculoskeletal: Yes: Muscle Pain, Muscle Weakness Edema: LLE: 1+ Neurological: Yes: Alert, Oriented Psychiatric: Yes: Alert, Oriented Labs: CBC, BMP 06/25/19 13:09 06/25/19 13:09 Imaging - Results Ultrasound: Report Reviewed, Image Reviewed Problem List - Problems (1) DVT (deep vein thrombosis) in Assessment/Plan: vascular eval appreciated heme consult full dose lovenox 1mg/kg check echo for heart strain Code(s): O22.30 - DEEP PHLEBOTHROMBOSIS IN , UNSPECIFIED TRIMESTER (2) Anxiety Assessment/Plan: monitor Code(s): F41.9 - ANXIETY DISORDER, UNSPECIFIED (3) Assessment/Plan: OBGYN consulted Code(s): Z34.90 - ENCNTR FOR SUPRVSN OF NORMAL , UNSP, UNSP TRIMESTER Qualifiers: Weeks of gestation: 12 weeks Qualified Code(s): Z3A.12 - 12 weeks gestation of (4) HTN (hypertension) Assessment/Plan: monitor BP consider restarting metoprolol if HTN Code(s): I10 - ESSENTIAL (PRIMARY) HYPERTENSION
[2019-06-25 18:26] VITALS: BMI 25.7
[2019-06-25] MEDS: ACETAMINOPHEN 325 MG TABLET (FP) PO PRN (18:49)
[2019-06-25] MEDS ORDERED: PT OWN MED DRAWER 7, Y5N ONE (21:27)
[2019-06-25] MEDS: ENOXAPARIN NA (PORCINE) 60 MG/0.6 ML DISP.SYRIN SQ SCH (22:46)
[2019-06-25 22:52] LABS: PH,URINE 5.5 (5.0-8.0); URINE APPEARANCE CLOUDY; URINE BILIRUBIN NEGATIVE (NEGATIVE); URINE COLOR YELLOW; URINE GLUCOSE (UA) NEGATIVE (NEGATIVE); URINE KETONE TRACE (NEGATIVE); URINE LEUK ESTERASE NEGATIVE (NEGATIVE); URINE NITRITE NEGATIVE (NEGATIVE); URINE PROTEIN TRACE (NEGATIVE)
[2019-06-26 07:12] LABS: BASO % 0.6 % (0-2.0); EOS % 2.7 % (0-4.5); HEMATOCRIT 28.2 % (32.4-45.2); HEMOGLOBIN 9.7 GM/dL (10.7-15.3); LYMPH % 23.4 % (8-40); MCHC 34.3 g/dl (32.0-36.0); MEAN CELL VOLUME 93.2 fl (80-96); MONO % 7.3 % (3.8-10.2); PLATELET COUNT 148 K/MM3 (134-434); RBC 3.03 M/mm3 (3.60-5.2); WHITE BLOOD COUNT 4.2 K/mm3 (4.0-10.0)
[2019-06-26 07:44] LABS: ALBUMIN 3.2 g/dl (3.4-5.0); BILIRUBIN,TOTAL 0.5 mg/dL (0.2-1); BLOOD UREA NITROGEN 8.1 mg/dL (7-18); CALCIUM 8.3 mg/dL (8.5-10.1); CREATININE 0.5 mg/dL (0.55-1.3); POTASSIUM 4.1 mmol/L (3.5-5.1); TOT PROT 6.6 g/dl (6.4-8.2)
[2019-06-26] MEDS ORDERED: PT OWN MED DRAWER 7, Y5N ONE ×2 (08:55→20:15)
[2019-06-26] MEDS: ACETAMINOPHEN 325 MG TABLET (FP) PO PRN ×2 (08:57→22:35)
[2019-06-26] MEDS: ENOXAPARIN NA (PORCINE) 60 MG/0.6 ML DISP.SYRIN SQ SCH ×2 (09:11→22:27)
--- NOTE | 2019-06-26 09:53 | PN ---
Progress Note (short form) - Note Progress Note: No new complaints. Exam unchanged, left leg edema, no pain. Discussed case with Dr. Leonard - fibroid surgery is not an option during . Anticoagulation with Lovenox needed until she delivers. Class III support hose will be prescribed to help control leg swelling. After delivery, venous thrombectomy and venoplasty can be considered to decrease risk of chronic post-phlebitic syndrome.
--- NOTE | 2019-06-26 10:14 | CONSULT ---
Consultation: CONSULT SERVICE: Hematology/Oncology HISTORY OF PRESENT ILLNESS: 33yo F with HTN, anxiety, uterine fibroids who originally presented due to LLE edema. Pt is 12 weeks and was recommended to be put on bedrest at week 8 by her INVESTIGATIVE RESEARCH SPECIALIST 2/2 to fibroid bleeding. Pt returned to normal health and went to work for 3 days until her winter break began. She went to urgent care due to radiation of pain down her leg which progressed to edema of her LLE. Pt went to her OBGYN, Dr. Leonard, who recommended vascular study and she was found to have DVT. We were asked to medically evaluated due to guidance of AC and duration. Pt currently has decreased swelling, but is anxious. SHe denies any shortness of breath, cough, hemoptysis, chest pain, palpitations, abdominal pain. Her vaginal bleeding from fibroids has ceased. She denies ever having any clotting disorders and denies any family history of clotting disorders, bleeding disorders, or cancers. Pt obviously not on OCP's for some time. 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 REVIEW OF SYSTEMS: As per HPI PHYSICAL EXAMINATION Vital Signs - 24 hr 06/25/19 06/25/19 06/25/19 11:45 16:00 18:10 Temperature 98.5 F 98.4 F 98.8 F Pulse Rate 94 H 100 H 88 Respiratory 19 20 18 Rate Blood Pressure 155/91 125/81 139/87 O2 Sat by Pulse 99 Oximetry (%) 06/25/19 06/25/19 06/25/19 18:35 20:00 21:00 Temperature 98.8 F Pulse Rate 94 H Respiratory 16 16 Rate Blood Pressure 117/70 O2 Sat by Pulse 99 100 Oximetry (%) 06/26/19 06/26/19 06/26/19 01:15 06:04 09:00 Temperature 98.4 F 98.3 F Pulse Rate 90 98 H Respiratory 16 16 Rate Blood Pressure 111/58 L 129/75 O2 Sat by Pulse 97 Oximetry (%) 06/26/19 09:14 Temperature 98.3 F Pulse Rate 87 Respiratory 18 Rate Blood Pressure 125/76 O2 Sat by Pulse Oximetry (%) GENERAL: Awake, alert, and fully oriented, NAD HEENT: NC/AT, EOMI, SHERIN, sclera anicteric, MMM NECK: No JVD, no masses, no lymphadenopathy LUNGS: CTA bilaterally. No wheezes, and no crackles. No accessory muscle use. CHEST: No axillary lymphadenopathy, normal breast exam (mechanical integrity engineer present) HEART: RRR, normal S1 and S2 without murmur ABDOMEN: Soft, NT/ND, normoactive bowel sounds, no guarding. No hepatomegaly. No inguinal lymph nodes EXTREMITIES: 2+ DP pulses, warm, well-perfused. No calf tenderness. No peripheral edema. PSYCHIATRIC: Cooperative. Good eye contact. Appropriate mood and affect. SKIN: Warm, dry, no rashes or lesions noted. Laboratory Results - last 24 hr 06/25/19 06/25/19 06/25/19 13:09 13:09 13:09 WBC 7.7 RBC 3.47 L Hgb 11.0 Hct 32.7 MCV 94.1 MCH 31.7 MCHC 33.7 RDW 13.9 Plt Count 177 MPV 10.0 Absolute Neuts (auto) 5.9 Neutrophils % 76.4 Lymphocytes % 16.6 D Monocytes % 5.9 Eosinophils % 0.7 Basophils % 0.4 Nucleated RBC % 0 PT with INR 11.70 INR 0.99 PTT (Actin FS) 29.4 Sodium 134 L Potassium 4.4 Chloride 103 Carbon Dioxide 22 Anion Gap 10 BUN 8.7 Creatinine 0.6 Est GFR (CKD-EPI)AfAm 137.83 Est GFR (CKD-EPI)NonAf 118.92 Random Glucose 70 L Calcium 9.5 Total Bilirubin 0.5 AST 34 ALT 34 Alkaline Phosphatase 41 L Total Protein 7.9 Albumin 4.0 Urine Color Urine Appearance Urine pH Ur Specific [place] Urine Protein Urine Glucose (UA) Urine Ketones Urine Blood Urine Nitrite Urine Bilirubin Urine Urobilinogen Ur Leukocyte Esterase Blood Type Antibody Screen 06/25/19 06/25/19 06/26/19 13:09 21:50 06:20 WBC 4.2 RBC 3.03 L Hgb 9.7 L Hct 28.2 L MCV 93.2 MCH 32.0 MCHC 34.3 RDW 14.0 Plt Count 148 MPV 10.0 Absolute Neuts (auto) 2.8 Neutrophils % 66.0 Lymphocytes % 23.4 D Monocytes % 7.3 Eosinophils % 2.7 D Basophils % 0.6 Nucleated RBC % 0 PT with INR INR PTT (Actin FS) Sodium Potassium Chloride Carbon Dioxide Anion Gap BUN Creatinine Est GFR (CKD-EPI)AfAm Est GFR (CKD-EPI)NonAf Random Glucose Calcium Total Bilirubin AST ALT Alkaline Phosphatase Total Protein Albumin Urine Color Yellow Urine Appearance Cloudy Urine pH 5.5 Ur Specific [place] 1.029 Urine Protein Trace Urine Glucose (UA) Negative Urine Ketones Trace H Urine Blood Negative Urine Nitrite Negative Urine Bilirubin Negative Urine Urobilinogen 1.0 Ur Leukocyte Esterase Negative Blood Type AB POSITIVE Antibody Screen Negative 06/26/19 06:20 WBC RBC Hgb Hct MCV MCH MCHC RDW Plt Count MPV Absolute Neuts (auto) Neutrophils % Lymphocytes % Monocytes % Eosinophils % Basophils % Nucleated RBC % PT with INR INR PTT (Actin FS) Sodium 136 Potassium 4.1 Chloride 106 Carbon Dioxide 22 Anion Gap 8 BUN 8.1 Creatinine 0.5 L Est GFR (CKD-EPI)AfAm 146.35 Est GFR (CKD-EPI)NonAf 126.27 Random Glucose 78 Calcium 8.3 L Total Bilirubin 0.5 AST 30 ALT 39 Alkaline Phosphatase 34 L Total Protein 6.6 Albumin 3.2 L Urine Color Urine Appearance Urine pH Ur Specific [place] Urine Protein Urine Glucose (UA) Urine Ketones Urine Blood Urine Nitrite Urine Bilirubin Urine Urobilinogen Ur Leukocyte Esterase Blood Type Antibody Screen Active Medications Generic Name Dose Route Start Last Admin Trade Name Freq PRN Reason Stop Dose Admin Acetaminophen 650 mg 06/25/19 15:45 06/26/19 08:57 Tylenol - PO 650 mg Q4H PRN Administration PAIN LEVEL 4 - 6 Enoxaparin Sodium 60 mg 06/25/19 22:00 06/26/19 09:11 Lovenox - SQ 60 mg BID SHEFALI Administration Sodium Chloride 2 spray 06/25/19 16:53 [place] Nasal [place] - NS BID PRN NASAL CONGESTION ASSESSMENT/PLAN: Provoked DVT Normocytic Anemia --Due to immobility and hypercoaguable state from , DVT is likely provoked. There is question of whether her large myoma is causing obstruction of vascular flow which would be pro-thrombotic as well. --Would benefit from anticoagulation (Lovenox 1mg/kg BID until 6 weeks ), however patient is a high risk patient for bleeding given uterine fibroids. It would be in the best interest if patient transferred to facility for high risk given uterine fibroids, DVT requiring AC, and advanced age, if OBGYN is agreeable --Tylenol PRN for pain control --Discussed with patient that mobility restrictions would be based upon OBGYN recommendations Case discussed with Dr. Gabriela Michele, DO - IM PGY-3 Visit type - Emergency Visit Emergency Visit: Yes ED Registration Date: 06/25/19 Care time: The patient presented to the Emergency Department on the above date and was hospitalized for further evaluation of their emergent condition. - New Patient This patient is new to me today: Yes Date on this admission: 06/26/19 - Critical Care Critical Care patient: No ATTENDING PHYSICIAN STATEMENT I saw and evaluated the patient. I reviewed the resident's note and discussed the case with the resident. I agree with the resident's findings and plan as documented. SUBJECTIVE: OBJECTIVE: ASSESSMENT AND PLAN:
--- NOTE | 2019-06-26 10:54 | PN ---
Progress Note, Physician Chief Complaint: LLE DVT History of Present Illness: NAD Nervous about the plan of care at bedside - Current Medication List Current Medications: Active Medications Acetaminophen (Tylenol -) 650 mg PO Q4H PRN PRN Reason: PAIN LEVEL 4 - 6 Last Admin: 06/26/19 08:57 Dose: 650 mg Enoxaparin Sodium (Lovenox -) 60 mg SQ BID SHEFALI Last Admin: 06/26/19 09:11 Dose: 60 mg Sodium Chloride ([place] Nasal [place] -) 2 spray NS BID PRN PRN Reason: NASAL CONGESTION - Objective Vital Signs: Vital Signs Temperature 98.3 F 06/26/19 09:14 Pulse Rate 87 06/26/19 09:14 Respiratory Rate 18 06/26/19 09:14 Blood Pressure 125/76 06/26/19 09:14 O2 Sat by Pulse Oximetry (%) 97 06/26/19 09:00 Constitutional: Yes: Well Nourished, No Distress, Calm Cardiovascular: Yes: Regular Rate and Rhythm Respiratory: Yes: Regular, CTA Bilaterally Gastrointestinal: Yes: Normal Bowel Sounds, Soft Musculoskeletal: Yes: Muscle Pain (LLE) Extremities: Yes: WNL Edema: Yes (LLE mild non pitting stephanie) Peripheral Pulses WNL: Yes Neurological: Yes: Alert, Oriented Psychiatric: Yes: Alert, Oriented Labs: CBC, BMP 06/26/19 06:20 06/26/19 06:20 INR, PTT INR 0.99 (0.83-1.09) 06/25/19 13:09 Problem List - Problems (1) DVT (deep vein thrombosis) in Assessment/Plan: -LMWH-on lovenox 1 mg/kg BID-continue through out -Hematology consult pending -Seen by OB and vascular surgery Problems reviewed: Yes Code(s): O22.30 - DEEP PHLEBOTHROMBOSIS IN , UNSPECIFIED TRIMESTER (2) Assessment/Plan: - vitamins started Problems reviewed: Yes Code(s): Z34.90 - ENCNTR FOR SUPRVSN OF NORMAL , UNSP, UNSP TRIMESTER Qualifiers: Weeks of gestation: 12 weeks Qualified Code(s): Z3A.12 - 12 weeks gestation of Assessment/Plan see problem list D/C home after hematology input
--- NOTE | 2019-06-26 12:42 | ECHO ---
Version: 1 Name: HARISH WINTERS Exam: Adult Echocardiogram Study Date: 06/26/2019, 8:02 AM Age: 33 Years MMode/2D Measurements & Calculations IVSd: 0.94 cm LVIDs: 1.89 cm LVIDd: 3.0 cm LVPWd: 0.85 cm ACS: 1.72 cm Ao root diam: 2.48 cm LVOT diam: 1.83 cm LA dimension: 2.08 cm Doppler Measurements & Calculations MV E max rusty: 90.8 cm/sec Med E/e': 10.5 MV A max rusty: 91.3 cm/sec Med Peak E' Rusty: 8.6 cm/sec MV E/A: 0.99 Lat E/e': 6.3 Lat Peak E' Rusty: 14.4 cm/sec MR max P.8 mmHg Ao max P.7 mmHg EDIN(I,D): 2.02 cm Ao mean P.9 mmHg LV V1 mean: 72.9 cm/sec Ao V2 max: 147.7 cm/sec LV V1 mean P.39 mmHg PI end-d rusty: 91.2 cm/sec TR max rusty: 206.3 cm/sec TR max P.1 mmHg Procedure A complete two-dimensional transthoracic echocardiogram was performed (2D, M-mode, Doppler and color flow Doppler). Left Ventricle The left ventricular size, thickness and function are normal. Ejection Fraction = 65%. Left Ventricu lar Filling pattern is normal for age. Right Ventricle The right ventricle is normal in size and function. Atria Normal left and right atrial size and function. Mitral Valve The mitral valve is normal in structure and function. Tricuspid Valve The tricuspid valve is normal in structure and function. There is trace tricuspid regurgitation. The re was insufficient TR detected to calculate RV systolic pressure. Aortic Valve The aortic valve is normal in structure and function. Pulmonic Valve The pulmonic valve is normal in structure and function. Great Vessels The aortic root is normal size. Pericardium/Pleura There is no pericardial effusion. Summary Statements This was essentially a normal study. The left ventricular size, thickness and function are normal The right ventricle is normal in size and function. Ryan Hernandez 06/26/2019, 12:41 PM Ordering Physician: Jacqueline Live Performed By: Ольга Luevano
--- NOTE | 2019-06-26 16:37 | EKG ---
Test Reason : Blood Pressure : / mmHG Vent. Rate : 088 BPM Atrial Rate : 088 BPM P-R Int : 140 ms QRS Dur : 086 ms QT Int : 366 ms P-R-T Axes : 070 062 011 degrees QTc Int : 442 ms NORMAL SINUS RHYTHM NONSPECIFIC T WAVE ABNORMALITY ABNORMAL ECG Confirmed by MD MARICARMEN, ASHLEY ([id number]) on 06/26/2019 4:37:10 PM Referred By: Confirmed By:ASHLEY HERNADEZ MD
--- NOTE | 2019-06-26 16:45 | EKG ---
Test Reason : Blood Pressure : / mmHG Vent. Rate : 095 BPM Atrial Rate : 095 BPM P-R Int : 142 ms QRS Dur : 086 ms QT Int : 356 ms P-R-T Axes : 064 049 020 degrees QTc Int : 447 ms NORMAL SINUS RHYTHM NONSPECIFIC T WAVE ABNORMALITY ABNORMAL ECG Confirmed by MD MARICARMEN, ASHLEY ([id number]) on 06/26/2019 4:45:12 PM Referred By: Confirmed By:ASHLEY HERNADEZ MD
--- NOTE | 2019-06-26 17:51 | CON.OBG ---
Consult Consult Specialty:: OB Reason for Consultation:: 33 yo female with at EGA 12w4d and large left DVT - History of Present Illness Chief Complaint: Pt with left LE swelling and pain. History of Present Illness: Pt was seen in-ofice 06/25/19 for visit and c/o left LE swelling and pain. She was diagnosed with a large left DVT and referred to ER. care at EGA 12w4d with EDC 01/04/20 Complicated by large fibroid that increased in size rather quickly First trimester threatened Ab with bleeding now stopped. 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 LEADER: No: Alzheimer's, CVA, Dementia, Migraine, Multiple Sclerosis, Peripheral Neuropathy, Parkinson's, Seizure, Syncope, TIA, Vertigo, Other Cardio/Vascular: Yes: HTN (off meds now) Pulmonary: No: Asthma, Bronchitis, Cancer, COPD, O2 Dependent, Pneumonia, Previously Intubated, Pulmonary Embolus, Pulmonary Fibrosis, Sleep Apnea, Other Gastrointestinal: No: Ascites, Cancer, Constipation, Crohn's Disease, Diverticulitis, Diverticulosis, Esophageal Varices, Gastritis, GERD, GI Bleed, Hemorrhoids, Hiatal Hernia, Inflamatory Bowel Disease, Irritable Bowel Disease, Pancreatitis, Peptic Ulcer Disease, Ulcerative Colitis, Other Hepatobiliary: No: Cirrhosis, Cholelithiasis, Cholecystitis, Choledocholithiasis , Hepatitis A, Hepatitis B, Hepatitis C, Other Renal/: No: Renal Failure, Renal Inusuff, BPH, Cancer, Hematuria, Hemodialysis , Neurogenic Bladder, Renal Calculi, UTI, Other Reproductive: Yes: Fibroids ...LMP: 03/29/19 ...: Yes ...: 1 ...Para: 0 Heme/Onc: Yes: Anemia Infectious Disease: No: AIDS, C-Diff, Herpes Zoster, HIV, MRSA, STD's, Tuberculosis, VREF, Other Psych: Yes: Anxiety Musculoskeletal: No: Bursitis, Chronic low back pain, Hemiparesis, Hemiplegia, Osteoarthritis, Paraplegia, Other Rheumatology: No: Fibromyalgia, Gout, Lupus, Rheumatoid Arthritis, Sarcoidosis, Vasculitis, Other ENT: No: Allergic Rhinitis, Sinusitis, Other Endocrine: No: Shady's Disease, Benjamín's Disease, Diabetes Insipidus, Diabetes Mellitus, Hyperparathyroidism, Hyperthyroidism, Hypothyroidism, Osteopenia, SIADH, Other Dermatology: No: Basal Cell, Cellulitis, Eczema, Melanoma, Psoriasis, Squamous Cell, Other - Past Surgical History Past Surgical History: Yes: None - Alcohol/Substance Use Hx Alcohol Use: No History of Substance Use: reports: None - Smoking History Smoking history: Never smoked Have you smoked in the past 12 months: No - Social History Usual Living Arrangement: With Spouse ADL: Independent 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 History of Recent Travel: No Home Medications - Allergies Allergies/Adverse Reactions: Allergies Allergy/AdvReac Type Severity Reaction Status Date / Time caffeine AdvReac Verified 06/25/19 11:47 - Home Medications Home Medications: Ambulatory Orders 114/Iron A-G/Folate 1 06/25/19 Family Medical History Family Hx Cardiac Disorders: Mother (HTN, CAD), Father (HTN) Review of Systems - Review of Systems Constitutional: reports: No Symptoms Eyes: reports: No Symptoms HENT: reports: No Symptoms Neck: reports: No Symptoms Cardiovascular: reports: No Symptoms Respiratory: reports: No Symptoms Gastrointestinal: reports: No Symptoms Genitourinary: reports: Pain (mild pain in uterine fibroid) Breasts: reports: No Symptoms Reported Musculoskeletal: reports: Extremity Pain Integumentary: reports: No Symptoms Neurological: reports: No Symptoms Endocrine: reports: No Symptoms Hematology/Lymphatic: reports: No Symptoms Psychiatric: reports: Anxiety Pain Intensity: 3 Physical Exam-[employer] [place] Vital Signs: Vital Signs Temperature 98.7 F 06/26/19 15:11 Pulse Rate 93 H 06/26/19 15:11 Respiratory Rate 18 06/26/19 15:11 Blood Pressure 117/73 06/26/19 15:11 O2 Sat by Pulse Oximetry (%) 97 06/26/19 09:00 Constitutional: Yes: Well Nourished, No Distress, Calm Eyes: Yes: WNL, Conjunctiva Clear, EOM Intact HENT: Yes: WNL, Atraumatic, Normocephalic Neck: Yes: WNL, Supple, Trachea Midline Cardiovascular: Yes: WNL, Regular Rate and Rhythm Respiratory: Yes: WNL, Regular, CTA Bilaterally Gastrointestinal: Yes: Normal Bowel Sounds, Palpable Mass (uterine mass= likely myoma) ...Rectal Exam: Yes: Deferred Renal/: Yes: WNL Pelvis: Yes: Mass External Genitalia: Yes: Normal Internal Exam Deferred: Yes Uterus: Yes: Enlarged, Lumpy, Mass Musculoskeletal: Yes: WNL Extremities: Yes: WNL Edema: Yes Edema: LUE: Trace, RUE: Trace, LLE: 1+, RLE: Trace Integumentary: Yes: WNL Neurological: Yes: WNL, Alert, Oriented ...Motor Strength: WNL Psychiatric: Yes: WNL, Alert, Oriented Labs: CBC, BMP 06/26/19 06:20 06/26/19 06:20 Problem List - Problems (1) DVT (deep vein thrombosis) in Assessment/Plan: Pt with an extensive left DVT. She needs continued therapeutic anticoagulation till delivery. Although, the pt is asymptomatic for OB issues now, and her is not a primary concern, she is at very high risk of OB complications due to anemia and risk of hemorrhage. Pt is also at high risk of spontaneous loss and/or premature delivery, anesthesia concerns, etc. I discussed the patient care with MFM (Dr. Butts), vascular surgery (Dr. Melara), Heme/Onc (Dr. Ochoa) and it is my opinion that the patient should be cared for in a tertiary care medical center. Due to the unpredictable nature of obstetric complications, consideration should be given to Hospital transfer MOISES. Problems reviewed: Yes Code(s): O22.30 - DEEP PHLEBOTHROMBOSIS IN , UNSPECIFIED TRIMESTER (2) Femoral DVT (deep venous thrombosis) Assessment/Plan: Pt is undergoing anticoagulation. She needs to continue anticoagulation till delivery. Problems reviewed: Yes Code(s): I82.419 - ACUTE EMBOLISM AND THROMBOSIS OF UNSPECIFIED FEMORAL VEIN Qualifiers: Chronicity: acute Laterality: left Qualified Code(s): I82.412 - Acute embolism and thrombosis of left femoral vein (3) HTN (hypertension) Assessment/Plan: No need for meds at this time Code(s): I10 - ESSENTIAL (PRIMARY) HYPERTENSION (4) Uterine fibroid during , antepartum Assessment/Plan: Pt with a large fibroid that appear to have increased in size and is likely contributing to the DVT. Pt is also at high risk for hemorrhage due to the large myoma aggravated by anticoagulation. She is also at high risk of OB complications including but not limited to loss, malpresentation , and delivery, hysterectomy, etc. The patient attempted to have an MRI of abdomen/pelvis but terminated the study due to anxiety. The pt should be transferred to a tertiary care medical center, like [facility] for further care and delivery. I discussed this with the patient. Problems reviewed: Yes Code(s): O34.10 - MATERNAL CARE FOR BENIGN TUMOR OF CORPUS UTERI, UNSP TRI; D25.9 - LEIOMYOMA OF UTERUS, UNSPECIFIED (5) Anemia affecting Assessment/Plan: Plan iron supplementation. Problems reviewed: Yes Code(s): O99.019 - ANEMIA COMPLICATING , UNSPECIFIED TRIMESTER Qualifiers: Trimester: first trimester Qualified Code(s): O99.011 - Anemia complicating , first trimester
[2019-06-26] MEDS: PRENATAL VITAMINS W/ FOLIC ACID TABLET (FP) PO SCH (18:26)
--- NOTE | 2019-06-26 19:25 | PN ---
Teaching Attending Note Name of Resident: Edmundo Michele ATTENDING PHYSICIAN STATEMENT I saw and evaluated the patient. I reviewed the resident's note and discussed the case with the resident. I agree with the resident's findings and plan as documented. SUBJECTIVE: Patient seen and examined Discussed with Dr. Leonard G1,P1, Ab-0, 33 year old female , 12 weeks, 4 days EDC-01/04/20. Approximately week 8 placed on bed rest for bleeding . On bed rest x several weeks. On 01/21/20 went to [facility] for buttock pain radiating down left leg. Describes some minimal swelling of Left leg at that time. Initial impression was sciatica. On 01/21 some difficulty with ambulation and increased swelling. Had appointment with Dr. Leonard the following day so delayed until following day at which time left lower extremity was significantly swollen. Evaluated with vascular study and found to have DVT of common femoral, deep femoral, proximal femoral and greater saphenous vein . Admitted and placed on Lovenox therapy. 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, no illicit drugs, no exposures, Family history- mother with "clot in heart from rheumatic heart disease which caused stroke"-; HBP; of pneumonia Father--HBP ROS- anxious, some discomfort LLE, abdomen Last Vital Signs Temp Pulse Resp BP Pulse Ox 98.8 F 106 H 18 133/79 97 06/26/19 18:00 06/26/19 18:00 06/26/19 18:00 06/26/19 18:00 06/26/19 09:00 HEENT: ANDREE, EOM Intact Oropharynx: No thrush, No mucositis Neck: Supple Nodes: Without adenopathy Cor: RSR, No murmurs, No gallops Lungs: Clear to P&A Abd: Soft, Normal bowel sounds, No organomegaly fibroid above umbilicus Ext:No significant edema on right LLE swelling ; negative Joy's Skin: No rashes, Integument intact CBC, BMP 06/26/19 06:20 06/26/19 06:20 Current Medications Generic Name Dose Route Start Last Admin Trade Name Freq PRN Reason Stop Dose Admin Acetaminophen 650 mg 06/25/19 15:45 02/26/20 08:57 Tylenol - PO 650 mg Q4H PRN Administration PAIN LEVEL 4 - 6 Enoxaparin Sodium 60 mg 06/25/19 22:00 06/26/19 09:11 Lovenox - SQ 60 mg BID SHEFALI Administration Multivit/Folic Acid/Iron 1 tab 06/26/19 11:00 06/26/19 18:26 Vitamins (Sjr) - PO 1 tab DAILY SHEFALI Administration Sodium Chloride 2 spray 06/25/19 16:53 06/26/19 15:17 [place] Nasal [place] - NS 2 spray BID PRN Administration NASAL CONGESTION Impression: DVT of LLE involving common femoral, deep femoral and proximal femoral veins as well as greater saphenous vein 12w,4d- EDC-01/04/20 Enlarging fibroid Hx HBP Anemia Risk factors for DVT include , perhaps bedrest, and enlarging fibroid and uterus with possible component of obstruction Hi risk OB case Risk of bleeding increased with fibroid and lovenox therapy Agree with transfer to high risk tertiary care center for ongoing monitoring and treatment OBJECTIVE: ASSESSMENT AND PLAN:
[2019-06-26 20:08] LABS: BASO % 0.5 % (0-2.0); EOS % 3.2 % (0-4.5); HEMATOCRIT 28.7 % (32.4-45.2); HEMOGLOBIN 9.7 GM/dL (10.7-15.3); LYMPH % 25.3 % (8-40); MCHC 33.9 g/dl (32.0-36.0); MEAN CELL VOLUME 94.3 fl (80-96); MEAN PLT VOLUME 10.4 fl (7.5-11.1); MONO % 8.5 % (3.8-10.2); NEUT % 62.5 % (42.8-82.8); PLATELET COUNT 157 K/MM3 (134-434); RBC 3.04 M/mm3 (3.60-5.2); RDW 14.1 % (11.6-15.6); WHITE BLOOD COUNT 4.5 K/mm3 (4.0-10.0)
[2019-06-26] MEDS: FERROUS SO4 325 MG TABLET (FP) PO SCH (22:26)
[2019-06-26] MEDS ORDERED: METOCLOPRAMIDE HCL INJECTION 10 MG/2 ML VIAL IVPUSH ONE (23:53)
[2019-06-27] MEDS ORDERED: ONDANSETRON 4 MG/2 ML VIAL IVPUSH ONE (00:03)
--- NOTE | 2019-06-27 04:41 | PN ---
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 Calls placed to [facility] and [facility] transfer centers; patient was accepted to [facility], however OBGYN service states they are unable to further assist in management. OBGYN would be available as consult, however patient not accepted to OBGYN service. Risks and benefits of transfer (including but not limited to life-threatening bleeding, complications, loss of ), discussed with patient; who chooses to hold transfer pending discussion with OBGYN. Case discussed with Dr. Lindsay, and Dr. Leonard.
[2019-06-27 07:11] LABS: BASO % 0.6 % (0-2.0); HEMATOCRIT 28.4 % (32.4-45.2); LYMPH % 29.4 % (8-40); MCH 32.9 pg (25.7-33.7); MCHC 35.3 g/dl (32.0-36.0); MEAN PLT VOLUME 10.6 fl (7.5-11.1); MONO % 7.1 % (3.8-10.2); NEUT % 59.9 % (42.8-82.8); PLATELET COUNT 172 K/MM3 (134-434); RBC 3.05 M/mm3 (3.60-5.2); RDW 14.3 % (11.6-15.6); WHITE BLOOD COUNT 4.6 K/mm3 (4.0-10.0)
[2019-06-27] MEDS: FERROUS SO4 325 MG TABLET (FP) PO SCH (08:18)
--- NOTE | 2019-06-27 08:25 | PN ---
Progress Note, Physician - Current Medication List Current Medications: Active Medications Acetaminophen (Tylenol -) 650 mg PO Q4H PRN PRN Reason: PAIN LEVEL 4 - 6 Last Admin: 06/26/19 22:35 Dose: 650 mg Enoxaparin Sodium (Lovenox -) 60 mg SQ BID [facility] Last Admin: 06/26/19 22:27 Dose: 60 mg Ferrous Sulfate (Feosol -) 325 mg PO BIDWM [facility] Last Admin: 06/27/19 08:18 Dose: 325 mg Multivit/Folic Acid/Iron ( Vitamins (Sjr) -) 1 tab PO DAILY [facility] Last Admin: 06/26/19 18:26 Dose: 1 tab Sodium Chloride ([place] Nasal [place] -) 2 spray NS BID PRN PRN Reason: NASAL CONGESTION Last Admin: 06/26/19 15:17 Dose: 2 spray - Objective Vital Signs: Vital Signs Temperature 98.4 F 06/27/19 06:00 Pulse Rate 84 06/27/19 06:00 Respiratory Rate 18 06/27/19 06:00 Blood Pressure 115/70 06/27/19 06:00 O2 Sat by Pulse Oximetry (%) 97 06/26/19 21:00 Cardiovascular: Yes: Regular Rate and Rhythm Respiratory: Yes: Regular, CTA Bilaterally Gastrointestinal: Yes: Normal Bowel Sounds, Soft Labs: CBC, BMP 06/27/19 05:25 INR, PTT INR 0.99 (0.83-1.09) 06/25/19 13:09 Assessment/Plan Problems (1) DVT (deep vein thrombosis) in Assessment/Plan: -LMWH-on lovenox 1 mg/kg BID-continue through out -Hematology consult note -Seen by OB and vascular surgery -Patient does not want transfer to tertiary center will see as outpatient --she understands risks of bleeding lose of and other complications of prgnancy,fibroids and dvt -she will continue to use lovenox -d/w dr montes who will see patient in am and refer to high risk clinic -d/w dr low and agrees needs to stay on lovenox and ob follow up Problems reviewed: Yes Code(s): O22.30 - DEEP PHLEBOTHROMBOSIS IN , UNSPECIFIED TRIMESTER (2) Assessment/Plan: - vitamins started Problems reviewed: Yes Code(s): Z34.90 - ENCNTR FOR SUPRVSN OF NORMAL , UNSP, UNSP TRIMESTER Qualifiers: Weeks of gestation: 12 weeks Qualified Code(s): Z3A.12 - 12 weeks gestation of
[2019-06-27 08:32] LABS: ALBUMIN 3.4 g/dl (3.4-5.0); BILIRUBIN,TOTAL 0.3 mg/dL (0.2-1); CALCIUM 9.2 mg/dL (8.5-10.1); CREATININE 0.6 mg/dL (0.55-1.3); POTASSIUM 4.1 mmol/L (3.5-5.1); TOT PROT 6.7 g/dl (6.4-8.2)
[2019-06-27 08:53] VITALS: TEMP 98.5
[2019-06-27] MEDS ORDERED: PT OWN MED DRAWER 7, Y5N ONE (09:03)
[2019-06-27] MEDS: ACETAMINOPHEN 325 MG TABLET (FP) PO PRN (09:06)
[2019-06-27] MEDS: PRENATAL VITAMINS W/ FOLIC ACID TABLET (FP) PO SCH (09:07)
[2019-06-27] MEDS: ENOXAPARIN NA (PORCINE) 60 MG/0.6 ML DISP.SYRIN SQ SCH (10:09)
--- NOTE | 2019-06-27 13:09 | PN ---
Progress Note (SOAP) - Subjective Chief Complaint: Pt was seen by me earlier today and she was w/o complaints. She reports decreased LE swelling and pain. She had some nausea last night but is eating breakfast- regular diet now. History of Present Illness: Pt was was diagnosed with a large left DVT and admitted for anticoagulation. care at [facility] 12w4d with EDC 01/04/20 Complicated by large fibroid that increased in size rather quickly First trimester threatened Ab with bleeding now stopped. Aneimia AMA chronic HTN Anxiety - Current Medications Current Medications: Active Medications Acetaminophen (Tylenol -) 650 mg PO Q4H PRN PRN Reason: PAIN LEVEL 4 - 6 Last Admin: 06/27/19 09:06 Dose: 650 mg Enoxaparin Sodium (Lovenox -) 60 mg SQ BID [facility] Last Admin: 06/27/19 10:09 Dose: 60 mg Ferrous Sulfate (Feosol -) 325 mg PO BIDWM [facility] Last Admin: 06/27/19 08:18 Dose: 325 mg Multivit/Folic Acid/Iron ( Vitamins (Sjr) -) 1 tab PO DAILY [facility] Last Admin: 06/27/19 09:07 Dose: 1 tab Sodium Chloride ([place] Nasal [place] -) 2 spray NS BID PRN PRN Reason: NASAL CONGESTION Last Admin: 06/26/19 15:17 Dose: 2 spray - Objective Vital Signs: Vital Signs Temperature 98.5 F 06/27/19 08:52 Pulse Rate 86 06/27/19 08:52 Respiratory Rate 18 06/27/19 08:52 Blood Pressure 120/75 06/27/19 08:52 O2 Sat by Pulse Oximetry (%) 100 06/27/19 09:00 Constitutional: Yes: Well Nourished, No Distress, Calm Eyes: Yes: WNL, Conjunctiva Clear, EOM Intact HENT: Yes: WNL, Atraumatic, Normocephalic Neck: Yes: WNL, Supple, Trachea Midline Cardiovascular: Yes: WNL, Regular Rate and Rhythm Respiratory: Yes: WNL, Regular, CTA Bilaterally Gastrointestinal: Yes: Normal Bowel Sounds, Palpable Mass ...Rectal Exam: Yes: Deferred Genitourinary: Yes: Musculoskeletal: Yes: WNL Extremities: Yes: WNL Edema: Yes Edema: LLE: Trace Integumentary: Yes: WNL Neurological: Yes: WNL, Alert, Oriented ...Motor Strength: Yes: WNL Psychiatric: Yes: WNL, Alert, Oriented Labs Lab Results: CBCD WBC 4.6 K/mm3 (4.0-10.0) 06/27/19 05:25 RBC 3.05 M/mm3 (3.60-5.2) L 06/27/19 05:25 Hgb 10.0 GM/dL (10.7-15.3) L 06/27/19 05:25 Hct 28.4 % (32.4-45.2) L 06/27/19 05:25 MCV 93.0 fl (80-96) 06/27/19 05:25 MCHC 35.3 g/dl (32.0-36.0) 06/27/19 05:25 RDW 14.3 % (11.6-15.6) 06/27/19 05:25 Plt Count 172 K/MM3 (134-434) 06/27/19 05:25 MPV 10.6 fl (7.5-11.1) 06/27/19 05:25 CMP Sodium 136 mmol/L (136-145) 06/27/19 05:25 Potassium 4.1 mmol/L (3.5-5.1) 06/27/19 05:25 Chloride 106 mmol/L (98-107) 06/27/19 05:25 Carbon Dioxide 20 mmol/L (21-32) L 06/27/19 05:25 Anion Gap 10 MMOL/L (8-16) 06/27/19 05:25 BUN 5.0 mg/dL (7-18) L 06/27/19 05:25 Creatinine 0.6 mg/dL (0.55-1.3) 06/27/19 05:25 Random Glucose 73 mg/dL (74-106) L 06/27/19 05:25 Calcium 9.2 mg/dL (8.5-10.1) 06/27/19 05:25 Total Bilirubin 0.3 mg/dL (0.2-1) 06/27/19 05:25 AST 33 U/L (15-37) 06/27/19 05:25 ALT 43 U/L (13-61) 06/27/19 05:25 Alkaline Phosphatase 34 U/L (45-117) L 06/27/19 05:25 Total Protein 6.7 g/dl (6.4-8.2) 06/27/19 05:25 Albumin 3.4 g/dl (3.4-5.0) 06/27/19 05:25 Imaging - Results Ultrasound: Report Reviewed Problem List - Problems (1) DVT (deep vein thrombosis) in Assessment/Plan: Pt with an extensive left DVT. She needs continued therapeutic anticoagulation till delivery. Problems reviewed: Yes Code(s): O22.30 - DEEP PHLEBOTHROMBOSIS IN , UNSPECIFIED TRIMESTER (2) Femoral DVT (deep venous thrombosis) Assessment/Plan: Pt is undergoing anticoagulation. She needs to continue anticoagulation till delivery. Problems reviewed: Yes Code(s): I82.419 - ACUTE EMBOLISM AND THROMBOSIS OF UNSPECIFIED FEMORAL VEIN Qualifiers: Chronicity: acute Laterality: left Qualified Code(s): I82.412 - Acute embolism and thrombosis of left femoral vein (3) HTN (hypertension) Assessment/Plan: No need for meds at this time Problems reviewed: Yes Code(s): I10 - ESSENTIAL (PRIMARY) HYPERTENSION Qualifiers: Hypertension type: unspecified Qualified Code(s): I10 - Essential (primary ) hypertension (4) Uterine fibroid during , antepartum Assessment/Plan: Pt with a large fibroid. The patient attempted to have an MRI of abdomen/pelvis but terminated the study due to anxiety. The patient is expected to be discharge to home today. 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 I discussed this with the patient. Code(s): O34.10 - MATERNAL CARE FOR BENIGN TUMOR OF CORPUS UTERI, UNSP TRI; D25.9 - LEIOMYOMA OF UTERUS, UNSPECIFIED (5) Anemia affecting Assessment/Plan: Continue iron supplementation. Problems reviewed: Yes Code(s): O99.019 - ANEMIA COMPLICATING , UNSPECIFIED TRIMESTER Qualifiers: Trimester: first trimester Qualified Code(s): O99.011 - Anemia complicating , first trimester (6) with 12 completed weeks gestation Assessment/Plan: Pt will see me tomorrow for care, aneuploidy testing, and transfer to high-risk OB at a tertiary care center. Problems reviewed: Yes Code(s): Z3A.12 - 12 WEEKS GESTATION OF
[2019-06-27 14:37] VITALS: BP 97/62; PULSE 75
== END 2019-06-27 15:19 | disposition home or self-care (01) | DRG 832 ==
LOC: SUPCPDRO 11:39 → JER 11:39 → JERBED 13:45 → J7W 18:00
PROVIDERS: ADMIT Family Medicine; ATTEND Family Medicine
DX: O22.31 Deep phlebothrombosis in pregnancy, first trimester (principal); I82.412 Acute embolism and thrombosis of left femoral vein; O10.911 Unspecified pre-existing hypertension complicating pregnancy, first trimester; O99.341 Other mental disorders complicating pregnancy, first trimester; O99.011 Anemia complicating pregnancy, first trimester; F41.9 Anxiety disorder, unspecified; Z3A.12 12 weeks gestation of pregnancy; O34.11 Maternal care for benign tumor of corpus uteri, first trimester; D25.9 Leiomyoma of uterus, unspecified
CPT/HCPCS: 36415; 72195-TC; 76815; 80053; 81003; 82962; 85025; 85610; 85730; 86850; 86900; 86901; 87077; 87086; 93005; 93010; 93306-TC; 93970-TC; 93971-LT; 94010; 99285-25

== ENCOUNTER 2021-05-27 12:37 | Emergency (ER) | payer OTHER ==
[2021-05-27 12:58] VITALS: BMI 22.6
[2021-05-27 15:23] LABS: BASO % 0.5 % (0-2.0); EOS % 1.4 % (0-4.5); HEMATOCRIT 39.3 % (32.4-45.2); HEMOGLOBIN 12.7 GM/dL (10.7-15.3); LYMPH % 25.3 % (8-40); MCH 29.9 pg (25.7-33.7); MCHC 32.2 g/dl (32.0-36.0); MEAN CELL VOLUME 92.8 fl (80-96); MEAN PLT VOLUME 10.5 fl (7.5-11.1); MONO % 6.2 % (3.8-10.2); NEUT % 66.6 % (42.8-82.8); PLATELET COUNT 196 10^3/uL (134-434); RBC 4.24 M/mm3 (3.60-5.2); RDW 13.1 % (11.6-15.6); WHITE BLOOD COUNT 6.2 K/mm3 (4.0-10.0)
[2021-05-27 15:26] LABS: ACTIVATED PTT 33.3 SECONDS (25.2-36.5); CHLORIDE 108 mmol/L (98-107); INR 1.04 (0.83-1.09); SODIUM 141 mmol/L (136-145)
[2021-05-27 15:28] LABS: ALBUMIN 4.4 g/dl (3.4-5.0); ANION GAP 7 MMOL/L (8-16); BLOOD UREA NITROGEN 10.5 mg/dL (7-18); CALCIUM 9.3 mg/dL (8.5-10.1); CO2 25 mmol/L (21-32); GLUCOSE,RANDOM 97 mg/dL (74-106); MAGNESIUM 2.4 mg/dL (1.8-2.4)
[2021-05-27 15:31] LABS: CREATININE 0.8 mg/dL (0.55-1.3); SGOT/AST 16 U/L (15-37); SGPT/ALT 20 U/L (13-61)
[2021-05-27 15:33] LABS: BILIRUBIN,TOTAL 0.3 mg/dL (0.2-1); TOT PROT 8.2 g/dl (6.4-8.2)
[2021-05-27 15:34] LABS: ALK PHOS 44 U/L (45-117)
[2021-05-27 18:36] VITALS: BP 117/75; PULSE 88; TEMP 97.6
== END 2021-05-27 18:39 | disposition home or self-care (01) ==
LOC: JER 12:37
DX: R00.2 Palpitations (principal); R00.0 Tachycardia, unspecified
CPT/HCPCS: 36415; 71046-TC-FY; 71275-TC; 80053; 83735; 84443; 84484; 84703; 85025; 85379; 85610; 85730; 93005; 93010; 93306-TC; 99285-25; C9803; Q9967; U0003; U0005

== ENCOUNTER 2021-08-26 08:57 | Emergency (ER) | payer OTHER ==
[2021-08-26 09:15] VITALS: BP 165/79; TEMP 98.2; BMI 21.9
[2021-08-26 12:07] LABS: BASO % 0.7 % (0-2.0); EOS % 1.1 % (0-4.5); HEMATOCRIT 39.3 % (32.4-45.2); HEMOGLOBIN 13.1 GM/dL (10.7-15.3); LYMPH % 23.9 % (8-40); MCHC 33.3 g/dl (32.0-36.0); MEAN CELL VOLUME 93.1 fl (80-96); MEAN PLT VOLUME 10.8 fl (7.5-11.1); MONO % 3.2 % (3.8-10.2); NEUT % 71.1 % (42.8-82.8); PLATELET COUNT 158 10^3/uL (134-434); RBC 4.23 M/mm3 (3.60-5.2); RDW 13.8 % (11.6-15.6); WHITE BLOOD COUNT 6.1 K/mm3 (4.0-10.0)
[2021-08-26 12:19] LABS: ALBUMIN 4.6 g/dl (3.4-5.0); BLOOD UREA NITROGEN 9.1 mg/dL (7-18); CALCIUM 9.5 mg/dL (8.5-10.1); MAGNESIUM 2.1 mg/dL (1.8-2.4)
[2021-08-26 12:23] LABS: CREATININE 0.7 mg/dL (0.55-1.3)
[2021-08-26 12:25] LABS: BILIRUBIN,TOTAL 0.7 mg/dL (0.2-1); TOT PROT 8.2 g/dl (6.4-8.2)
[2021-08-26 15:36] VITALS: PULSE 106
== END 2021-08-26 16:28 | disposition home or self-care (01) ==
LOC: JER 08:57
DX: R00.2 Palpitations (principal)
CPT/HCPCS: 36415; 71046-TC-FY; 80053; 83735; 84484; 84703; 85025; 93005; 93010; 99285-25

== ENCOUNTER 2022-09-13 13:06 | Emergency (ER) | payer OTHER ==
[2022-09-13 13:16] VITALS: BMI 22.4
[2022-09-13] MEDS ORDERED: SODIUM CHLORIDE 1,000 ML IV ONE (15:54)
[2022-09-13 17:11] LABS: BASO % 0.6 % (0-2.0); EOS % 0.1 % (0-4.5); HEMATOCRIT 37.7 % (32.4-45.2); LYMPH % 18.2 % (8-40); MCH 31.4 pg (25.7-33.7); MCHC 34.5 g/dl (32.0-36.0); MEAN PLT VOLUME 10.5 fl (7.5-11.1); MONO % 4.1 % (3.8-10.2); PLATELET COUNT 187 10^3/uL (134-434); RBC 4.14 M/mm3 (3.60-5.2); WHITE BLOOD COUNT 5.1 K/mm3 (4.0-10.0)
[2022-09-13 17:22] LABS: POTASSIUM 3.9 mmol/L (3.5-5.1)
[2022-09-13 17:24] LABS: CALCIUM 9.6 mg/dL (8.5-10.1)
[2022-09-13 17:25] LABS: ALBUMIN 4.9 g/dl (3.4-5.0); BLOOD UREA NITROGEN 7.7 mg/dL (7-18)
[2022-09-13 17:28] LABS: CREATININE 0.8 mg/dL (0.55-1.3)
[2022-09-13 17:29] LABS: BILIRUBIN,TOTAL 0.7 mg/dL (0.2-1); TOT PROT 8.8 g/dl (6.4-8.2)
[2022-09-13 18:07] VITALS: RESP 18
[2022-09-13 18:54] VITALS: BP 123/79; PULSE 89
[2022-09-13 18:57] VITALS: TEMP 98
== END 2022-09-13 18:57 | disposition home or self-care (01) ==
LOC: JER 13:06
DX: R00.2 Palpitations (principal); E86.0 Dehydration; Z20.822 Contact with and (suspected) exposure to COVID-19
CPT/HCPCS: 0241U-QW; 36415; 71046-TC-FY; 80053; 84484; 84703; 85025; 85379; 86850; 86900; 86901; 93005; 93010; 99285-25